=== PATIENT | male | born 2000 | race Caucasian/White ===

== ENCOUNTER 2019-04-22 00:45 | Inpatient (IN) | payer BC ==
[~2019-04-22] VITALS: Ht 167.6 cm; Wt 66.1 kg
[2019-04-22 02:10] VITALS: BP 113/71; PULSE 58
[2019-04-22] MEDS ORDERED: SOD CHLORIDE 0.9% 1,000 ML IV SCH (02:48)
[2019-04-22] MEDS ORDERED: NACL 0.9% 3 ML SYG IV SCH (03:00)
[2019-04-22] MEDS ORDERED: BISACODYL (EC) 5 MG TAB PO PRN (03:00)
[2019-04-22] MEDS ORDERED: ONDANSETRON 4 MG INJ IV PRN (03:00)
[2019-04-22] MEDS ORDERED: ACETAMINOPHEN 325 MG TAB PO PRN (03:00)
[2019-04-22] MEDS ORDERED: DOCUSATE SODIUM 100 MG CAP PO PRN (03:00)
[2019-04-22] MEDS ORDERED: HYDROmorphONE 0.5 MG/0.5 ML SYG IV PRN (03:00)
[2019-04-22 03:08] VITALS: Ht 167.6 cm; Wt 66.1 kg
[2019-04-22] MEDS ORDERED: SOD CHLORIDE 0.9% 100 ML ONE (04:45)
[2019-04-22] MEDS ORDERED: IOHEXOL 300MG/ML 150 ML BTL ONE (04:45)
[2019-04-22] MEDS ORDERED: DEXTROSE 5%-0.45% NACL 1,000 ML IV SCH (05:00)
[2019-04-22] MEDS ORDERED: VANCOMYCIN IV PER PHARMACY XX SCH (05:00)
[2019-04-22] MEDS ORDERED: VANCOMYCIN 1 GM 250 ML IVPB ONE (06:00)
[2019-04-22] MEDS: PIPER-TAZO 3.375 GM IV (PMX) 100 ML IVPB SCH ×2 (06:03→12:13)
--- NOTE | 2019-04-22 06:23 | HP ---
Date/Time of Note Date/Time of Note DATE: 04/22/19 TIME: 06:15 Assessment/Plan VTE Prophylaxis Risk score (from Ns)>0 risk: 1 SCD applied (from Ns): Yes Pharmacological prophylaxis: NA/contraindicated Pharm contraindication: low risk/ambulating Lines/Catheters IV Catheter Type (from [facility]): Peripheral IV Urinary Cath still in place: No Assessment/Plan Hospital Course This is a 18-year-old male being admitted to the [facility] floor for: #1 urachal abscess: Ultrasound showed a tubelike structure extending from the umbilicus, possibly a urachal cyst/abscess. With the patient currently on antibiotics of vancomycin and Zosyn. Will repeat CBC and BMP. We will keep the patient n.p.o. except meds. Dr. Hurd of general surgery has been consulted, he is requesting a CT of the abdomen pelvis with IV contrast which will be ordered. IV fluid hydration, pain control Patient is a active fully functioning male. He denies any chest pain or short ness of breath he is able to walk up and down stairs without any shortness of breath. His functional capacity is mets greater than 4. Pending chest x-ray results he is medically optimized for surgical intervention if needed. #2 dysuria: Patient did have trace leuk esterase on the transfer facility urinalysis. I will repeat a UA and urine culture. He is currently on Zosyn. #3 history of abdominal surgery: Patient had history of abdominal surgery as a . Will need to clarify what exactly this before. #4 DVT GI prophylaxis: SCDs, no GI prophylaxis indicated Further treatment strategy will be implemented as per the clinical course Result Diagram: 04/22/19 0309 04/22/19 0309 Results 24hrs Laboratory Tests Test 04/22/19 03:09 White Blood Count 9.3 Red Blood Count 5.46 Hemoglobin 15.6 Hematocrit 45.0 Mean Corpuscular Volume 82.4 Mean Corpuscular Hemoglobin 28.6 L Mean Corpuscular Hemoglobin Concent 34.7 Red Cell Distribution Width 12.5 Platelet Count 198 Mean Platelet Volume 11.1 H Immature Granulocytes % 0.200 Neutrophils % 51.4 Lymphocytes % 34.8 Monocytes % 10.0 Eosinophils % 3.2 Basophils % 0.4 Nucleated Red Blood Cells % 0.0 Immature Granulocytes # 0.020 Neutrophils # 4.8 Lymphocytes # 3.2 H Monocytes # 0.9 Eosinophils # 0.3 Basophils # 0.0 Nucleated Red Blood Cells # 0.0 Prothrombin Time 13.4 Prothrombin Time Ratio 1.0 INR International Normalized Ratio 1.01 Activated Partial Thromboplast Time 30.7 Sodium Level 145 H Potassium Level 3.8 Chloride Level 106 Carbon Dioxide Level 28 Anion Gap 11 Blood Urea Nitrogen 14 Creatinine 0.93 Est Glomerular Filtrat Rate mL/min > 60 Glucose Level 108 Calcium Level 9.8 Magnesium Level 2.0 Total Bilirubin 0.6 Direct Bilirubin 0.00 Indirect Bilirubin 0.6 Aspartate Amino Transf (AST/SGOT) 27 Alanine Aminotransferase (ALT/SGPT) 26 Alkaline Phosphatase 80 Total Protein 8.0 Albumin 4.4 Globulin 3.60 H Albumin/Globulin Ratio 1.22 HPI/ROS Admit Date/Time Admit Date/Time Apr 22, 2019 at 02:26 Hx of Present Illness Chief complaint: Umbilical pain, discharge This is a 18-year-old male who originally presented to outside hospital with complaints of umbilical pain and discharge. Patient originally experienced perirectal pain in the a.m. yesterday. He went to his PCPs office who ordered an ultrasound of the abdomen. When patient went home he was taking a shower and he started noticing drainage from his bellybutton that was greenish-yellow. He did report soreness around the umbilicus but denied any bleeding. At the outside hospital patient had an ultrasound of the abdomen performed which showed tubelike structure extending from the umbilicus to the bladder without vascular flow. It was determined that patient likely had a urachal cyst/abscess that was draining. Patient has a history of a GI issue as a child where he was vomiting and required abdominal surgery at 1-month-old. Currently upon transfer patient is stable he reports mild pain on palpation of the abdomen but is otherwise normal. He did receive ceftriaxone at the transferring facility. He did report dysuria as well. Patient denies any fevers or nausea vomiting or diarrhea. Patient is a active fully functioning male. He is able to walk up and down stairs without any shortness of breath. H. Pertinent laboratory findings from the transfer facility please see chart for full details: CBC: White blood cell count 10.5/hemoglobin 16/hematocrit 40.2/platelets 219 Wound culture: Gram stain 2+ gram-positive cocci, pleomorphic gram-positive bacilli Urinalysis: Trace leukocytes Ultrasound of the abdomen: Tubelike structure extending from the umbilicus to the bladder without vascular flow. Allergies: NKDA Medications: None ROS Const: As per HPI Eyes : No pain discharge or redness or change in visual acuity ENT: No pain, sore throat, congestion, congestion, dysphagia or discharge Respiratory: No shortness of breath, cough, sputum, wheezing, or pleuritic pain Cardiovascular: No chest pain, palpitation, PND, or edema GI : As per HPI Genitourinary: No dysuria, hematuria, flank pain , discharge or CVA tenderness Musculoskeletal: No joint pain, back pain, neck pain, restricted range of motion in neck or joints Skin: No rash, bruising or hives Neuro: No headache, dizziness, syncope, seizure, focal weakness Endocrine: No polyuria, polydipsia, temperature intolerance Psych: No hallucination, depression, anxiety or suicidal ideation PMH/Family/Social Past Medical History Abdominal abnormality as a Medications Current Medications IV Flush (NS 3 ml) 3 ml PER PROTOCOL IV ; Start 04/22/19 at 03:00 Ondansetron HCl (Zofran Inj) 4 mg Q6H PRN IV NAUSEA/VOMITING; Start 04/22/19 at 03:00 Acetaminophen (Tylenol Tab) 650 mg Q6H PRN PO .PAIN 1-3 OR TEMP; Start 04/22/19 at 03:00 Hydromorphone HCl (Dilaudid) 0.5 mg Q4H PRN IV .SEVERE PAIN 7-10; Start 04/22/19 at 03:00 Docusate Sodium (Colace) 100 mg Q12H PRN PO .CONSTIPATION; Start 04/22/19 at 03:00 Bisacodyl (Dulcolax) 5 mg DAILY PRN PO .CONSTIPATION; Start 04/22/19 at 03:00 Vancomycin HCl (Vanco Iv Per Pharmacy) VANCOMYCIN PER PHARMACY PER PROTOCOL XX ; Start 04/22/19 at 05:00 Piperacillin Sod/ Tazobactam Sod 100 ml @ 200 mls/hr Q6 IVPB Last administered on 04/22/19at 06:03; Admin Dose 200 MLS/HR; Start 04/22/19 at 05:00 Vancomycin HCl 250 ml @ 125 mls/hr ONCE ONCE IVPB ; Start 04/22/19 at 06:00; Stop 04/22/19 at 07:59 Dextrose/Sodium Chloride 1,000 ml @ 80 mls/hr [id number] IV Last administered on 04/22/19at 06:03; Admin Dose 80 MLS/HR; Start 04/22/19 at 05:00 Coded Allergies: No Known Allergies (Verified Allergy, Unknown, 04/22/19) Past Surgical History Surgery a 1-month-old of the abdomen Family History Significant Family History: no pertinent family hx Social History Alcohol Use: none Smoking Status: Never smoker Drug Use: none Exam/Review of Systems Vital Signs Vitals Vital Signs Date Temp Pulse Resp B/P (MAP) Pulse Ox O2 O2 Flow FiO2 Time Delivery Rate 04/22/19 97.9 58 113/71 97 Room Air 02:10 (85) Intake and Output 04/21/19 04/21/19 04/22/19 1515:00 23:00 07:00 IntakeIntake Total 80 ml BalanceBalance 80 ml Exam Exam General: Patient is a pleasant male currently lying in bed in no acute distress HEENT: Atraumatic, normocephalic. The pupils are equal, round and reactive. Extraocular motor are intact Neck: Supple with full range of motion. No rigidity or meningismus Chest: Nontender Lungs: Clear to auscultation bilaterally no crackles rales or wheezing Heart: Normal S1-S2, Regular rhythm and rate. No murmur, S3, or S4 Abdomen: Soft , mild tenderness palpation over the periumbilical region, no discharge noted currently. Old surgical scar present on the right abdomen lateral to the umbilicus, nondistended , bowel sounds are present. No guarding no rebound tenderness , No masses or organomegaly. Extremities: Normal to inspection, no edema no cyanosis Neurologic: Normal mental status, speech normal, cranial nerves II through XII are intact, motor and sensory are intact, no focal weakness ELMIRA BURNETT Apr 22, 2019 06:23
[2019-04-22 07:30] VITALS: BP 105/64; PULSE 13; RESP 18
--- NOTE | 2019-04-22 08:25 | PN ---
Date/Time of Note Date/Time of Note DATE: 04/22/19 TIME: 08:21 Assessment/Plan VTE Prophylaxis Risk score (from Ns)>0 risk: 1 SCD applied (from [facility] [place] Yes SCD contraindicated: low risk/ambulating Pharmacological prophylaxis: heparin Pharm contraindication: low risk/ambulating Lines/Catheters IV C[facility]ter Type (from [facility]): Peripheral IV Urinary Cath still in place: No Assessment/Plan Problems: (1) Infected urachal cyst Status: Acute Comment: The data from the other hospitals on a disc in the physical chart. Surgery is coming to consult on this. The bacteria that usually populate these are either skin kareem and gram-positive's or Enterobacteriaceae. We will make sure that the antibiotics have adequate coverage for that although he may need to not use penicillin based. Please note that the weight that the pharmacist using a calculation in their note is a type of the patient does not weigh 661 kg, he weighs 66.1 kg (2) H/O pyloric stenosis Status: Chronic Comment: As an infant. Postoperative Result Diagram: 04/22/19 0309 04/22/19 0309 Results 24hrs Laboratory Tests Test 04/22/19 03:09 White Blood Count 9.3 Red Blood Count 5.46 Hemoglobin 15.6 Hematocrit 45.0 Mean Corpuscular Volume 82.4 Mean Corpuscular Hemoglobin 28.6 L Mean Corpuscular Hemoglobin Concent 34.7 Red Cell Distribution Width 12.5 Platelet Count 198 Mean Platelet Volume 11.1 H Immature Granulocytes % 0.200 Neutrophils % 51.4 Lymphocytes % 34.8 Monocytes % 10.0 Eosinophils % 3.2 Basophils % 0.4 Nucleated Red Blood Cells % 0.0 Immature Granulocytes # 0.020 Neutrophils # 4.8 Lymphocytes # 3.2 H Monocytes # 0.9 Eosinophils # 0.3 Basophils # 0.0 Nucleated Red Blood Cells # 0.0 Prothrombin Time 13.4 Prothrombin Time Ratio 1.0 INR International Normalized Ratio 1.01 Activated Partial Thromboplast Time 30.7 Sodium Level 145 H Potassium Level 3.8 Chloride Level 106 Carbon Dioxide Level 28 Anion Gap 11 Blood Urea Nitrogen 14 Creatinine 0.93 Est Glomerular Filtrat Rate mL/min > 60 Glucose Level 108 Calcium Level 9.8 Magnesium Level 2.0 Total Bilirubin 0.6 Direct Bilirubin 0.00 Indirect Bilirubin 0.6 Aspartate Amino Transf (AST/SGOT) 27 Alanine Aminotransferase (ALT/SGPT) 26 Alkaline Phosphatase 80 Total Protein 8.0 Albumin 4.4 Globulin 3.60 H Albumin/Globulin Ratio 1.22 CC: SHELLEY STOCK MD ; Subjective 24 Hr Interval Summary Free Text/Dictation Patient reports after the antibiotics he started to feel itchy diffusely. (Zosyn) no prior history of antibiotic allergies Constitutional: no complaints Respiratory: no complaints Cardiovascular: no complaints Gastrointestinal: pain Genitourinary: no complaints Skin: pruritis Exam/Review of Systems Exam Vitals Vital Signs Date Temp Pulse Resp B/P (MAP) Pulse Ox O2 O2 Flow FiO2 Time Delivery Rate 04/22/19 98.2 13 18 105/64 98 Room Air 07:30 (78) Intake and Output 04/21/19 04/21/19 04/22/19 1515:00 23:00 07:00 IntakeIntake Total 180 ml BalanceBalance 180 ml Constitutional: alert, oriented Neck: supple, non-tender Respiratory: clear to auscultation, normal air movement Cardiovascular: regular rate and rhythm, nl pulses Gastrointestinal: soft, nl liver, spleen, other (Right upper quadrant 4 cm horizontal scar just to the right of midline; modestly tender below the umbilicus without palpable mass) Skin: nl turgor, other (Presently no rash or lesions will have to watch as the day progresses) Results Results 24hrs Laboratory Tests Test 04/22/19 03:09 White Blood Count 9.3 Red Blood Count 5.46 Hemoglobin 15.6 Hematocrit 45.0 Mean Corpuscular Volume 82.4 Mean Corpuscular Hemoglobin 28.6 L Mean Corpuscular Hemoglobin Concent 34.7 Red Cell Distribution Width 12.5 Platelet Count 198 Mean Platelet Volume 11.1 H Immature Granulocytes % 0.200 Neutrophils % 51.4 Lymphocytes % 34.8 Monocytes % 10.0 Eosinophils % 3.2 Basophils % 0.4 Nucleated Red Blood Cells % 0.0 Immature Granulocytes # 0.020 Neutrophils # 4.8 Lymphocytes # 3.2 H Monocytes # 0.9 Eosinophils # 0.3 Basophils # 0.0 Nucleated Red Blood Cells # 0.0 Prothrombin Time 13.4 Prothrombin Time Ratio 1.0 INR International Normalized Ratio 1.01 Activated Partial Thromboplast Time 30.7 Sodium Level 145 H Potassium Level 3.8 Chloride Level 106 Carbon Dioxide Level 28 Anion Gap 11 Blood Urea Nitrogen 14 Creatinine 0.93 Est Glomerular Filtrat Rate mL/min > 60 Glucose Level 108 Calcium Level 9.8 Magnesium Level 2.0 Total Bilirubin 0.6 Direct Bilirubin 0.00 Indirect Bilirubin 0.6 Aspartate Amino Transf (AST/SGOT) 27 Alanine Aminotransferase (ALT/SGPT) 26 Alkaline Phosphatase 80 Total Protein 8.0 Albumin 4.4 Globulin 3.60 H Albumin/Globulin Ratio 1.22 Medications Medication Current Medications IV Flush (NS 3 ml) 3 ml PER PROTOCOL IV ; Start 04/22/19 at 03:00 Ondansetron HCl (Zofran Inj) 4 mg Q6H PRN IV NAUSEA/VOMITING; Start 04/22/19 at 03:00 Acetaminophen (Tylenol Tab) 650 mg Q6H PRN PO .PAIN 1-3 OR TEMP; Start 04/22/19 at 03:00 Hydromorphone HCl (Dilaudid) 0.5 mg Q4H PRN IV .SEVERE PAIN 7-10; Start 04/22/19 at 03:00 Docusate Sodium (Colace) 100 mg Q12H PRN PO .CONSTIPATION; Start 04/22/19 at 03:00 Bisacodyl (Dulcolax) 5 mg DAILY PRN PO .CONSTIPATION; Start 04/22/19 at 03:00 Vancomycin HCl (Vanco Iv Per Pharmacy) VANCOMYCIN PER PHARMACY PER PROTOCOL XX ; Start 04/22/19 at 05:00 Piperacillin Sod/ Tazobactam Sod 100 ml @ 200 mls/hr Q6 IVPB Last administered on 04/22/19at 06:03; Admin Dose 200 MLS/HR; Start 04/22/19 at 05:00 Dextrose/Sodium Chloride 1,000 ml @ 80 mls/hr [id number] IV Last administered on 04/22/19at 06:03; Admin Dose 80 MLS/HR; Start 04/22/19 at 05:00 Vancomycin HCl 250 ml @ 125 mls/hr Q8H IVPB ; Start 04/22/19 at 14:00 Miscellaneous Information (*Rx Drug Level Order Reminder*) VANCOMYCIN TROUGH AT 0500 0500 ONCE XX ; Start 04/23/19 at 05:00; Stop 04/23/19 at 05:01 DAMARIS BRADY MD Apr 22, 2019 08:25
[2019-04-22] MEDS ORDERED: VANCOMYCIN 1 GM 250 ML IVPB SCH (14:00)
[2019-04-22 14:16] VITALS: BP 106/52; PULSE 77; RESP 18
--- NOTE | 2019-04-22 16:39 | DS ---
Date/Time of Note Date/Time of Note DATE: 04/22/19 TIME: 16:36 Discharge Summary Admission/Discharge Info Admit Date/Time Apr 22, 2019 at 02:26 Discharge Date/Time April 22, 2019 Discharge Diagnosis Urachal Cyst Patient Condition: Good Consults General Surgery-Dr. Lauryn Hurd Hx of Present Illness Hx of Present Illness Chief complaint: Umbilical pain, discharge This is a 18-year-old male who originally presented to outside hospital with complaints of umbilical pain and discharge. Patient originally experienced perirectal pain in the a.m. yesterday. He went to his PCPs office who ordered an ultrasound of the abdomen. When patient went home he was taking a shower and he started noticing drainage from his bellybutton that was greenish-yellow. He did report soreness around the umbilicus but denied any bleeding. At the outside hospital patient had an ultrasound of the abdomen performed which showed tubelike structure extending from the umbilicus to the bladder without vascular flow. It was determined that patient likely had a urachal cyst/abscess that was draining. Patient has a history of a GI issue as a child where he was vomiting and required abdominal surgery at 1-month-old. Currently upon transfer patient is stable he reports mild pain on palpation of the abdomen but is otherwise normal. He did receive ceftriaxone at the transferring facility. He did report dysuria as well. Patient denies any fevers or nausea vomiting or diarrhea. Patient is a active fully functioning male. He is able to walk up and down stairs without any shortness of breath. H. Pertinent laboratory findings from the transfer facility please see chart for full details: CBC: White blood cell count 10.5/hemoglobin 16/hematocrit 40.2/platelets 219 Wound culture: Gram stain 2+ gram-positive cocci, pleomorphic gram-positive bacilli Urinalysis: Trace leukocytes Ultrasound of the abdomen: Tubelike structure extending from the umbilicus to the bladder without vascular flow. Hospital Course Patient was transferred due to insurance. Seen and felt NOT to be infected by surgery who advised discharge. Due to stability, discharge home Follow-up Plan Dr. Shelley Hurd in one week Primary Care Provider Not On Staff Doctor Time spent on discharge: > 30 minutes Pending Labs Laboratory Tests Test 04/22/19 03:09 White Blood Count 9.3 10^3/ul (4.8-10.8) Red Blood Count 5.46 10^6/ul (4.70-6.10) Hemoglobin 15.6 g/dl (14.0-18.0) Hematocrit 45.0 % (42.0-52.0) Mean Corpuscular Volume 82.4 fl (72.0-104.0) Mean Corpuscular Hemoglobin 28.6 pg (29.0-33.0) Mean Corpuscular Hemoglobin Concent 34.7 g/dl (32.0-37.0) Red Cell Distribution Width 12.5 % (11.5-14.5) Platelet Count 198 10^3/UL (140-415) Mean Platelet Volume 11.1 fl (7.4-10.4) Immature Granulocytes % 0.200 % (0.001-0.429) Neutrophils % 51.4 % (30.0-74.0) Lymphocytes % 34.8 % (18.0-55.0) Monocytes % 10.0 % (0.0-13.0) Eosinophils % 3.2 % (0.0-7.0) Basophils % 0.4 % (0.0-2.0) Nucleated Red Blood Cells % 0.0 /100WBC (0.0-0.0) Immature Granulocytes # 0.020 10^3/ul (0.0-0.031) Neutrophils # 4.8 10^3/ul (1.6-7.5) Lymphocytes # 3.2 10^3/ul (0.8-2.9) Monocytes # 0.9 10^3/ul (0.3-0.9) Eosinophils # 0.3 10^3/ul (0.0-0.5) Basophils # 0.0 10^3/ul (0.0-0.1) Nucleated Red Blood Cells # 0.0 10^3/ul (0.0-0.0) Prothrombin Time 13.4 Sec (11.9-14.9) Prothrombin Time Ratio 1.0 INR International Normalized Ratio 1.01 Activated Partial Thromboplast Time 30.7 Sec (23.0-35.0) Sodium Level 145 mmol/L (135-144) Potassium Level 3.8 mmol/L (3.5-5.1) Chloride Level 106 mmol/L (97-110) Carbon Dioxide Level 28 mmol/L (21-31) Anion Gap 11 (5-13) Blood Urea Nitrogen 14 mg/dl (7-20) Creatinine 0.93 mg/dl (0.61-1.24) Est Glomerular Filtrat Rate mL/min > 60 mL/min (>60) Glucose Level 108 mg/dl (70-220) Calcium Level 9.8 mg/dl (8.4-10.2) Magnesium Level 2.0 mg/dl (1.7-2.5) Total Bilirubin 0.6 mg/dl (0.2-1.3) Direct Bilirubin 0.00 mg/dl (0.00-0.20) Indirect Bilirubin 0.6 mg/dl (0-1.1) Aspartate Amino Transf (AST/SGOT) 27 IU/L (15-46) Alanine Aminotransferase (ALT/SGPT) 26 IU/L (13-69) Alkaline Phosphatase 80 IU/L (42-121) Total Protein 8.0 g/dl (6.1-8.1) Albumin 4.4 g/dl (3.3-4.9) Globulin 3.60 g/dl (1.3-3.2) Albumin/Globulin Ratio 1.22 Copies To: CC: SHELLEY HURD MD ; DAMARIS BRADY MD Apr 22, 2019 16:39
--- NOTE | 2019-04-22 16:40 | PDOCDIS ---
Discharge Instructions DIAGNOSIS Discharge Diagnosis Urachal Cyst CONDITION [id number] Patient Condition: [id number] Good HOME CARE INSTRUCTIONS: [id number] Diet Instructions: [id number] Regular ACTIVITY: [id number] Activity Restrictions: [id number] No Restrictions FOLLOW UP/APPOINTMENTS Follow-up Plan Dr. Carrillo Hurd in one week DAMARIS BRADY MD Apr 22, 2019 16:40
== END 2019-04-22 17:15 | disposition home or self-care (01) | DRG 699 ==
LOC: PP2 02:26
PROVIDERS: ADMIT Family Medicine; ATTEND Family Medicine
DX: Q64.4 Malformation of urachus (principal); L02.216 Cutaneous abscess of umbilicus; B95.8 Unspecified staphylococcus as the cause of diseases classified elsewhere
CPT/HCPCS: 71045; 74177; 80053; 83735; 85025; 85610; 85730; 87070; 87086; J2543; J3370; J7030; J7042; Q9967